=== PATIENT | female | born 1965 | race Caucasian/White ===

== ENCOUNTER 2016-07-29 11:58 | Observation (INO) | payer OTHER ==
--- NOTE | 2016-07-29 13:02 | ED ---
Chest Pain HPI - General Chief Complaint: Chest Pain Stated Complaint: chest pain 3 days Source: patient Mode of arrival: wheelchair Limitations: no limitations - History of Present Illness Initial Comments: Patient is a 51 year old female who presents for evaluation for three-day history of stabbing left-sided chest pain. Past medical history as below. She developed this pain while at rest 3 days ago. It is been constant over the past 3 days. It radiates to the left shoulder. She has never had a history of this before in the past. It is worse with inspiration. Nothing seems to make it better. She has tried aspirin, [place], Motrin, Aleve with no relief. She's never had pain like this before in the past. She's never had a DVT or pulmonary embolism. She has stress test last year which was apparently unremarkable. She's never had a heart catheterization before. Associated symptoms include decreased appetite and questionable nausea. She denies any history, to the left chest. No twisting or picking up any objects to attribute to her symptoms. She took an aspirin last night. The pain is currently 10 out of 10. Risk factors for cardiovascular disease include diabetes, hypertension, former smoker, distant family history of cardio vascular disease with 2 aunts receiving stents before the age of 65. She denies fever, chills, headache, changes of vision, URI symptoms, shortness of breath, cough, vomiting, diarrhea , pain or burning with urination. - Related Data Home Medications Medication Instructions Recorded Confirmed Lisinopril [Prinivil] 20 mg PO BID 10/21/13 07/29/16 Carvedilol [Coreg] 12.5 mg PO BID 07/29/16 07/29/16 Hydrocodone/Acetaminophen [[place] 1 tab PO Q4-6H PRN 07/29/16 07/29/16 10-325] Levothyroxine Sodium [Synthroid] 50 mcg PO DAILY 07/29/16 07/29/16 Liraglutide [Victoza 2-Rubén] 0.6 mg SQ DAILY 07/29/16 07/29/16 Liraglutide [Victoza 2-Rubén] 1.2 mg PO DAILY 07/29/16 07/29/16 amLODIPine [Norvasc] 10 mg PO DAILY 07/29/16 07/29/16 glipiZIDE [Glucotrol] 2.5 mg PO TID 07/29/16 07/29/16 Allergies Allergy/AdvReac Type Severity Reaction Status Date / Time Penicillins Allergy Unknown Verified 07/29/16 13:28 Childhood Review of Systems ROS Statement: Those systems with pertinent positive or pertinent negative responses have been documented in the HPI. ROS Other: All systems not noted in ROS Statement are negative. Past Medical History Past Medical History: GERD/Reflux, Hypertension, Sleep Apnea/CPAP/BIPAP Additional Past Medical History / Comment(s): hx migraines, hx heart murmer, chronic diarrhea History of Any Multi-Drug Resistant Organisms: None Reported Past Surgical History: Appendectomy, Cholecystectomy, Hysterectomy, Tonsillectomy Additional Past Surgical History / Comment(s): NECK FUSION, lasik eye Past Anesthesia/Blood Transfusion Reactions: No Reported Reaction Past Psychological History: No Psychological Hx Reported Smoking Status: Former smoker Past Alcohol Use History: None Reported Past Drug Use History: None Reported - Past Family History Father Family Medical History: Cancer General Exam Limitations: no limitations General appearance: alert, in no apparent distress Head exam: Present: atraumatic, normocephalic, normal inspection Eye exam: Present: normal appearance, PERRL, EOMI. Absent: scleral icterus, conjunctival injection, periorbital swelling ENT exam: Present: normal exam, mucous membranes moist Neck exam: Present: normal inspection. Absent: tenderness, meningismus, lymphadenopathy Respiratory exam: Present: normal lung sounds bilaterally. Absent: respiratory distress, wheezes, rales, rhonchi, stridor Cardiovascular Exam: Present: regular rate, normal rhythm, normal heart sounds, other (Normal S1 and S2. No murmurs. No gallops. Chest pain is not reproducible with palpation of the chest.). Absent: systolic murmur, diastolic murmur, rubs, gallop, clicks GI/Abdominal exam: Present: soft, normal bowel sounds. Absent: distended, tenderness, guarding, rebound, rigid Extremities exam: Present: normal inspection, full ROM, normal capillary refill , other (No pain with palpation of the calves.). Absent: tenderness, pedal edema, joint swelling, calf tenderness Back exam: Present: normal inspection Neurological exam: Present: alert, oriented X3, CN II-XII intact Psychiatric exam: Present: normal affect, normal mood Skin exam: Present: warm, dry, intact, normal color. Absent: rash Course Vital Signs 07/29/16 07/29/16 07/29/16 12:02 13:44 14:09 Temperature 99.1 F Pulse Rate 93 80 89 Respiratory 18 15 18 Rate Blood Pressure 141/71 139/71 149/79 O2 Sat by Pulse 93 L 98 Oximetry 07/29/16 15:00 Temperature Pulse Rate 75 Respiratory 20 Rate Blood Pressure 109/58 O2 Sat by Pulse 99 Oximetry Chest Pain MDM - MDM Patient is a 51-year-old female present for evaluation of left-sided chest pain over the past 3 days which has been constant in nature. Risk factors for cardiovascular disease include diabetes, hypertension, former smoker, family history of cardio vascular disease. She's never had a DVT or pulmonary embolism. EKG which was performed at 1210 and reviewed by another physician revealed normal sinus rhythm with right axis. No ST changes. Heart rate 89. DE 176. QRS 80. QTc 440. Similar to EKG on 10/21/13. Cannot perc her out. Low risk by well's criteria. We'll order cardiovascular workup, repeat EKG, aspirin, nitro, d-dimer. 1418: Pt developed [place] after nitro. Awaiting labs and repeat EKG. Discussed with nursing staff. Ordered 1 gm Acetaminophen. Is also nauseas. Will order zofran. 1423: Reviewed repeat EKG. Normal sinus rhythm at 82. DE 172. QRS 76. QTc 450. No change from previous EKG. No ST changes. Laboratory findings resulted. Troponin negative. D-dimer negative. Rest of labs appeared to be within normal limits. Awaiting chest x-ray. 1515: Chest x-ray negative. Discussed the case with the patient. Does not feel comfortable going home. States that she is never had pain like this before in the past. Since she continues to have chest pain we'll order Nitropaste. Discussed the case with Dr. Bucio (PCP preference) who agrees with observation. No further orders. Disposition Clinical Impression: Chest pain Disposition: ADMITTED IP TO THIS [facility] Condition: Good Decision to Admit Reason: Admit from EC
[2016-07-29] MEDS ORDERED: ASPIRIN 81 MG CHEW PO STA (13:16)
[2016-07-29] MEDS ORDERED: NITROGLYCERIN SL TABS 0.4 MG TAB SUBLINGUAL STA (13:24)
[2016-07-29] MEDS ORDERED: ACETAMINOPHEN TAB 500 MG TAB PO STA (14:15)
[2016-07-29 14:19] LABS: Creatine Kinase 44 U/L (30-135)
[2016-07-29] MEDS ORDERED: ONDANSETRON 4 MG/2 ML VIAL IVP STA (14:19)
[2016-07-29 14:20] LABS: ALT 51 U/L (9-52); AST 40 U/L (14-36); Alkaline Phosphatase 71 U/L (38-126); Anion Gap 14 mmol/L; Blood Urea Nitrogen 10 mg/dL (7-17); Calcium 9.7 mg/dL (8.4-10.2); Carbon Dioxide 25 mmol/L (22-30); Chloride 103 mmol/L (98-107); Glucose 91 mg/dL (74-99); Non-African American GFR(MDRD) >60 (>60 ml/min/1.73 sqM); Potassium 4.5 mmol/L (3.5-5.1); Sodium 142 mmol/L (137-145); Total Bilirubin 1.2 mg/dL (0.2-1.3); Total Protein 7.3 g/dL (6.3-8.2)
[2016-07-29 14:29] LABS: Basophils # (A) 0.1 k/uL (0-0.2); Basophils % (A) 1 %; CH 29.4; CHCM 33.5; Eosinophils # (A) 0.1 k/uL (0-0.7); Eosinophils % (A) 1 %; HCT 43.3 % (34.0-46.0); HDW 2.34; HGB 14.5 gm/dL (11.4-16.0); Luc % (Auto) 2; Lymphocytes # (A) 2.2 k/uL (1.0-4.8); Lymphocytes % (A) 22 %; MCH 29.4 pg (25.0-35.0); MCHC 33.4 g/dL (31.0-37.0); MCV 88.1 fL (80.0-100.0); Mean Platelet Volume 6.8; Monocytes # (A) 0.7 k/uL (0-1.0); Monocytes % (A) 7 %; Neutrophils # (A) 6.7 k/uL (1.3-7.7); Neutrophils % (A) 68 %; RBC 4.91 m/uL (3.80-5.40); RDW 13.2 % (11.5-15.5); WBC 9.9 k/uL (3.8-10.6); WBC (Perox) 10.72
[2016-07-29 14:31] LABS: Creatine Kinase MB <0.2 ng/mL (0.0-2.4); Troponin I <0.012 ng/mL (0.000-0.034)
[2016-07-29 14:39] LABS: INR 1.1 (<1.1); Partial Thromboplastin Time 25.8 sec (22.0-30.0); Prothrombin Time 10.7 sec (9.0-12.0)
--- NOTE | 2016-07-29 15:23 | XR ---
EXAMINATION TYPE: XR chest 2V DATE OF EXAM: 07/29/2016 3:12 PM COMPARISON: 10/21/2013 HISTORY: Shortness of breath TECHNIQUE: Frontal and lateral views of the chest are obtained. FINDINGS: There is no focal air space opacity, pleural effusion, or pneumothorax seen. The cardiac silhouette size is within normal limits. The osseous structures are intact. IMPRESSION: No acute cardiopulmonary process.
[2016-07-29 17:21] LABS: Glucose,Whole Blood 89 mg/dL (75-99)
[2016-07-29 18:33] LABS: Creatine Kinase 41 U/L (30-135)
[2016-07-29 18:47] LABS: Creatine Kinase MB <0.2 ng/mL (0.0-2.4); Troponin I <0.012 ng/mL (0.000-0.034)
[2016-07-29] MEDS ORDERED: NON-FORMULARY DRUG (Liraglutide [Victoza 2-Pak] 0.6 MG) SQ SCH (19:15)
[2016-07-29] MEDS: NITROGLYCERIN OINT 1 INCH/GM PACKET TOPICAL SCH (20:06)
[2016-07-29] MEDS: LISINOPRIL 20 MG TAB PO SCH (20:07)
[2016-07-29] MEDS: FAMOTIDINE 20 MG TAB PO SCH (20:07)
[2016-07-29] MEDS: CARVEDILOL 12.5 MG TAB PO SCH (20:07)
[2016-07-29] MEDS: HYDROcodone/APAP 10-325MG 1 EACH TAB PO PRN (20:07)
[2016-07-29 20:54] LABS: Glucose,Whole Blood 159 mg/dL (75-99)
[2016-07-30 02:20] LABS: Creatine Kinase 34 U/L (30-135)
[2016-07-30 02:35] LABS: Creatine Kinase MB <0.2 ng/mL (0.0-2.4); Troponin I <0.012 ng/mL (0.000-0.034)
[2016-07-30] MEDS: NITROGLYCERIN OINT 1 INCH/GM PACKET TOPICAL SCH ×2 (02:55→06:20)
[2016-07-30] MEDS: LEVOTHYROXINE 50 MCG TAB PO SCH (06:20)
[2016-07-30] MEDS: HYDROcodone/APAP 10-325MG 1 EACH TAB PO PRN ×2 (06:25→20:10)
[2016-07-30 06:58] LABS: Glucose,Whole Blood 110 mg/dL (75-99)
[2016-07-30 07:19] LABS: Cholesterol 159 mg/dL (<200); HDL Cholesterol 39 mg/dL (40-60); Triglycerides 141 mg/dL (<150)
[2016-07-30] MEDS ORDERED: DOBUTamine DRIP for NUC MED 500 MG in DEXTROSE/WATER 1 250ML.BAG IV ONE (07:40)
[2016-07-30] MEDS: ASPIRIN 325 MG TAB PO SCH (08:52)
[2016-07-30] MEDS: CARVEDILOL 12.5 MG TAB PO SCH ×2 (08:53→17:50)
[2016-07-30] MEDS: amLODIPine 10 MG TAB PO SCH (08:53)
[2016-07-30] MEDS ORDERED: ONDANSETRON 4 MG/2 ML VIAL IVP STA (09:34)
--- NOTE | 2016-07-30 10:28 | ECHOF ---
Referral Reason:cp MEASUREMENTS -------- HEIGHT: 162.6 cm WEIGHT: 112.9 kg BP: IVSd: 1.0 cm (0.6 - 1.1) LVIDd: 4.0 cm (3.9 - 5.3) LVPWd: 1.3 cm (0.6 - 1.1) IVSs: 1.4 cm LVIDs: 2.9 cm LVPWs: 2.0 cm LA Diam: 3.3 cm (2.7 - 3.8) LAESV Index (A-L): 20.76 ml/m Ao Diam: 2.5 cm (2.0 - 3.7) AV Cusp: 1.5 cm (1.5 - 2.6) LA Diam: 3.5 cm (2.7 - 3.8) MV EXCURSION: 14.230 mm (> 18.000) MV EF SLOPE: 53 mm/s (70 - 150) EPSS: 0.3 cm MV E Nader: 0.58 m/s MV DecT: 298 ms MV A Nader: 0.68 m/s MV E/A Ratio: 0.86 RAP: 5.00 mmHg RVSP: 9.64 mmHg FINDINGS -------- Sinus rhythm. This was a technically adequate study. There is mild concentric left ventricular hypertrophy. Overall left ventricular systolic function is low-normal with, an EF between 50 - 55 %. The right ventricle is normal in size. Normal LA size by volume 22+/-6 ml/m2. The right atrial size is normal. The aortic valve is trileaflet, and appears structurally normal. No aortic stenosis or regurgitation. Mild mitral annular calcification present. Mild mitral regurgitation is present. Mild tricuspid regurgitation present. There is no evidence of pulmonary hypertension. The right ventricular systolic pressure, as measured by Doppler, is 9.64mmHg. There is no pulmonic regurgitation present. The aortic root size is normal. There is a small, generalized pericardial effusion present. CONCLUSIONS -------- 1. There is mild concentric left ventricular hypertrophy. 2. Overall left ventricular systolic function is low-normal with, an EF between 50 - 55 %. 3. Mild mitral annular calcification present. 4. Mild mitral regurgitation is present. 5. Mild tricuspid regurgitation present. 6. There is no evidence of pulmonary hypertension. 7. The right ventricular systolic pressure, as measured by Doppler, is 9.64mmHg. 8. The aortic root size is normal. 9. There is a small, generalized pericardial effusion present. JACQUARD LOOM CARD CHANGER: Robyn Sanders RDCS
--- NOTE | 2016-07-30 11:17 | CONS ---
DATE OF CONSULTATION: Mrs. London is a 51-year-old female with no prior documented history of coronary artery disease, who presented with symptoms of chest discomfort going on for the last 2 to 3 days. The discomfort in the chest sharp radiated to the back at times constant and worse with deep breathing. She is not very active physically, has some dyspnea on exertion, but no prior history of coronary artery disease. She had a stress test over a year ago that was unremarkable. She denies dizziness or palpitation. No PND, orthopnea. She has occasional peripheral edema. No syncope. Her coronary risk factors remarkable for hypertension, diabetes mellitus. She stopped smoking a few years ago. She has not been treated for hyperlipidemia. Medications at home include: 1. [place]. 2. Coreg 12.5 mg twice a day. 3. Glipizide 2.5 mg 3 times a day. 4. Norvasc 10 mg daily. 5. Prinivil 20 mg twice a day. 6. Synthroid 0.05 mg daily. 7. Victoza. 8. Pepcid. REVIEW OF SYSTEMS: RESPIRATORY SYSTEM: She has obstructive sleep apnea. Some dyspnea on exertion. No wheezing. GI: No recent GI bleeding. No peptic ulcer disease. system: No dysuria or hematuria. Nervous system: No stroke or seizure. PHYSICAL EXAMINATION: She is a 51-year-old female, alert, oriented, in no apparent distress. Obese blood pressure 117/68 with a heart rate in 70s. HEAD: Normocephalic. EYES: Sclerae anicteric. NECK: Good upstroke. No bruit. No jugular venous distention. LUNGS: Clear to auscultation. HEART: Regular rate rhythm. S1, S2, no S3, no S4, no murmur or rub. ABDOMEN: Soft, nontender, obese. Positive bowel sounds. No organomegaly. EXTREMITIES: No edema. Intact distal pulses. Lab data revealed troponin less than 0.012 for 3 samples, BUN and creatinine of 10 and 0.53. Potassium 4.5. Hemoglobin of 14.5. Cholesterol 159, LDL of 92. Chest x-ray shows no acute infiltrate. EKG sinus mechanism with a normal axis and intervals, normal echocardiogram. IMPRESSION: 1. Chest discomfort, has atypical features for ischemic disease in a patient with multiple coronary risk factors. No evidence to suggest acute coronary syndrome. 2. Hypertension. 3. Diabetes. 4. Obesity. 5. Obstructive sleep apnea. RECOMMENDATIONS: I recommend proceeding with a stress dobutamine echocardiogram to evaluate her findings and guide her treatment. If there is no evidence of inducible ischemia, then no further cardiac work-up will be needed at this time. Thank you for this consult. We will follow with you.
[2016-07-30] MEDS ORDERED: ATROPINE SULFATE 0.1 MG/ML 10ML SYRINGE ONE (11:57)
[2016-07-30 12:23] LABS: Glucose,Whole Blood 92 mg/dL (75-99)
[2016-07-30] MEDS: LISINOPRIL 20 MG TAB PO SCH ×2 (12:31→21:09)
--- NOTE | 2016-07-30 13:50 | ECHOS ---
DATE OF SERVICE: 07/30/2016 AGE: 51Y SEX: F HT: 64" WT: 249 lbs. Protocol Chavo: Others: Dobutamine Stress Echo Stage: 4 Dur. of Exercise: 10:45 *Heart Rate Blood Pressure *Rest: 72 Rest: 142/42 * *Max. Achieved: 149 Maximum BP: 185/38 85% PMHR: 145 100% PMHR: 171 *METS: - INDICATIONS: Chest pain. MEDICATIONS: - Patient was given dobutamine infusion according to the standard protocol. Peak heart rate of 149 was achieved. Maximum blood pressure of 185/38 mmHg was noted. Resting EKG shows normal sinus rhythm with normal CO interval and QRS duration and normal ST-T waves. No ST segment depression suggestive of ischemia is noted echocardiographic images reveals a normal left ventricular chamber size with normal left ventricular systolic function. At the peak dose of dobutamine infusion, normal increase in the wall thickness and contractility is noted. FINAL IMPRESSION: 1. This dobutamine stress echocardiographic study is negative for stress-induced ischemia. 2. EKG portion of the stress test is not suggestive of ischemia. 3. No dysrhythmias are noted.
--- NOTE | 2016-07-30 15:52 | P.HPIM ---
History of Present Illness H&P Date: 07/30/16 Chief Complaint: Chest pain This is a 51-year-old female with a known past medical history of diabetes mellitus, hypertension, former smoker, and obstructive sleep apnea. She presents to the emergency room with complaints of chest pain. Patient reports that the chest pain has started about 3 days ago. Initially intermittent and now has been constant. Pain is on the left side of the chest and radiates to the left shoulder blade. She admits to having some shortness of breath nausea and diaphoretic. She also had tingling in the left arm. She was admitted to the observation floor. Cardiology was consulted. Troponins were negative 3 sets. EKG showing a normal sinus rhythm. Chest x-rays negative. Dobutamine stress echo was completed and was negative. Echo had shown EF of 50-55% but did reveal a small pericardial effusion. Patient is still complaining of chest discomfort. She denies any new exercises or any heavy lifting. Denies any cough, fevers chills or sweats. Denies any vomiting. Denies any bowel movement changes. Denies any urinary symptoms. Review of Systems Please refer to HPI otherwise unremarkable Past Medical History Past Medical History: Diabetes Mellitus, GERD/Reflux, Hypertension, Sleep Apnea/ CPAP/BIPAP Additional Past Medical History / Comment(s): hx migraines, hx heart murmer, chronic diarrhea. diagnosed 7 months ago with Diabetes Mellitis History of Any Multi-Drug Resistant Organisms: None Reported Past Surgical History: Appendectomy, Cholecystectomy, Hysterectomy, Tonsillectomy Additional Past Surgical History / Comment(s): NECK FUSION, lasik eye Past Anesthesia/Blood Transfusion Reactions: No Reported Reaction Past Psychological History: No Psychological Hx Reported Smoking Status: Former smoker Past Alcohol Use History: None Reported Past Drug Use History: None Reported - Past Family History Father Family Medical History: Cancer Medications and Allergies Home Medications Medication Instructions Recorded Confirmed Type Lisinopril [Prinivil] 20 mg PO BID 10/21/13 07/29/16 History Carvedilol [Coreg] 12.5 mg PO BID 07/29/16 07/29/16 History Famotidine 20 mg PO HS 07/29/16 07/29/16 History Hydrocodone/Acetaminophen [[place] 1 tab PO Q4-6H PRN 07/29/16 07/29/16 History 10-325] Levothyroxine Sodium [Synthroid] 50 mcg PO DAILY 07/29/16 07/29/16 History Liraglutide [Victoza 2-Rubén] 0.6 mg SQ DAILY 07/29/16 07/29/16 History Liraglutide [Victoza 2-Rubén] 1.2 mg SQ DAILY 07/29/16 07/29/16 History amLODIPine [Norvasc] 10 mg PO DAILY 07/29/16 07/29/16 History glipiZIDE [Glucotrol] 2.5 mg PO TID 07/29/16 07/29/16 History Allergies Allergy/AdvReac Type Severity Reaction Status Date / Time Penicillins Allergy Unknown Verified 07/29/16 13:28 Childhood Physical Exam Vitals: Vital Signs Temp Pulse Pulse Resp BP BP Pulse Ox 07/30/16 12:00 97.9 F 96 18 117/67 95 07/30/16 08:00 18 07/30/16 07:50 97.8 F 73 18 111/69 97 07/30/16 04:00 16 07/30/16 03:53 97.9 F 74 16 117/68 95 07/30/16 00:00 16 07/29/16 23:59 98.8 F 76 16 115/64 94 L 07/29/16 20:00 98.1 F 87 16 150/79 93 L 07/29/16 18:06 97 07/29/16 16:52 97.9 F 81 16 135/84 96 07/29/16 15:59 98.0 F 85 18 109/58 99 Intake and Output 07/30/16 07/30/16 07/30/16 06:59 14:59 22:59 Intake Total 222 Balance 222 Intake: Oral 222 Other: Voiding Method Toilet # Voids 1 Head normocephalic Neck supple Lungs clear to auscultation bilaterally no wheezing or crackles. No tenderness with palpation of the chest wall. No rashes Heart regular rate and rhythm S1-S2, no rub or gallop Abdomen is soft nontender nondistended positive bowel sounds no hepatosplenomegaly Extremities no edema Neuro alert and orientated to 3 Results CBC & Chem 7: 07/29/16 13:53 07/29/16 13:53 Labs: Abnormal Lab Results - Last 24 Hours (Table) 02/26/17 02/27/17 02/27/17 Range/Units 20:49 06:33 06:53 POC Glucose (mg/dL) 159 H 110 H (75-99) mg/dL HDL Cholesterol 39 L (40-60) mg/dL Thrombosis Risk Factor Assmnt - Choose All That Apply Any of the Below Risk Factors Present?: Yes Each Factor Represents 1 point: Age 41-60 years, Obesity (BMI >25) Other Risk Factors: No Thrombosis Risk Factor Assessment Total Risk Factor Score: 2 Thrombosis Risk Factor Assessment Level: Low Risk Assessment and Plan Plan: 1. Chest pain: MO ruled out. Troponins negative 3 sets. EKG showing a normal sinus rhythm. Dobutamine stress echo was negative. Patient still having some chest discomfort. Echo did show a small pericardial effusion with an EF of 50-55%. We'll discuss case with cardiology. Chest x-ray negative. D- dimer negative. 2. Diabetes mellitus type 2: Continue glipizide. We'll add sliding scale coverage. 3. Essential hypertension blood pressure stable 4. Hypothyroidism continue Synthroid GI prophylaxis Pepcid and DVT prophylaxis subcu heparin Time with Patient: Greater than 30 (Greater than 50% of the total time spent in counseling and coordination of care.I performed an examination of the patient and discussed their management with the physician Bartender. I have reviewed the Physician Bartender's notes and agree with the documented findings and plan of care)
[2016-07-30 17:48] LABS: Glucose,Whole Blood 95 mg/dL (75-99)
[2016-07-30] MEDS: INSULIN LISPRO (humaLOG) 300 UNIT/3 ML VIAL SQ SCH ×2 (17:51→21:39)
[2016-07-30] MEDS: ONDANSETRON 4 MG/2 ML VIAL IVP PRN (20:10)
[2016-07-30 20:24] LABS: Hemoglobin A1C 6.5 % (4.2-6.1)
[2016-07-30] MEDS: FAMOTIDINE 20 MG TAB PO SCH (21:09)
[2016-07-30] MEDS: HEPARIN SODIUM,PORCINE 5,000 UNIT/ML 1 ML VIAL SQ SCH (21:09)
[2016-07-30 21:16] LABS: Glucose,Whole Blood 133 mg/dL (75-99)
[2016-07-31] MEDS: HYDROcodone/APAP 10-325MG 1 EACH TAB PO PRN ×3 (03:53→20:13)
[2016-07-31] MEDS: ONDANSETRON 4 MG/2 ML VIAL IVP PRN ×4 (03:54→23:08)
[2016-07-31] MEDS: LEVOTHYROXINE 50 MCG TAB PO SCH (06:05)
[2016-07-31 06:42] LABS: Basophils # (A) 0.1 k/uL (0-0.2); Basophils % (A) 1 %; CH 29.1; CHCM 31.9; Eosinophils # (A) 0.3 k/uL (0-0.7); Eosinophils % (A) 3 %; HCT 44.6 % (34.0-46.0); HDW 2.26; HGB 14.1 gm/dL (11.4-16.0); Luc # (Auto) 0.24; Luc % (Auto) 3; Lymphocytes # (A) 3.1 k/uL (1.0-4.8); Lymphocytes % (A) 33 %; MCH 29.1 pg (25.0-35.0); MCHC 31.7 g/dL (31.0-37.0); MCV 91.7 fL (80.0-100.0); Mean Platelet Volume 6.5; Monocytes # (A) 0.6 k/uL (0-1.0); Monocytes % (A) 6 %; Neutrophils # (A) 5.3 k/uL (1.3-7.7); Neutrophils % (A) 55 %; RBC 4.86 m/uL (3.80-5.40); RDW 13.1 % (11.5-15.5); WBC 9.6 k/uL (3.8-10.6); WBC (Perox) 9.84
[2016-07-31 07:01] LABS: Glucose,Whole Blood 105 mg/dL (75-99)
[2016-07-31 07:19] LABS: ALT 58 U/L (9-52); AST 36 U/L (14-36); Alkaline Phosphatase 70 U/L (38-126); Anion Gap 11 mmol/L; Blood Urea Nitrogen 13 mg/dL (7-17); Calcium 9.5 mg/dL (8.4-10.2); Carbon Dioxide 28 mmol/L (22-30); Chloride 102 mmol/L (98-107); Glucose 110 mg/dL (74-99); Non-African American GFR(MDRD) >60 (>60 ml/min/1.73 sqM); Potassium 4.6 mmol/L (3.5-5.1); Sodium 141 mmol/L (137-145); Total Bilirubin 0.8 mg/dL (0.2-1.3); Total Protein 7.1 g/dL (6.3-8.2)
[2016-07-31] MEDS: INSULIN LISPRO (humaLOG) 300 UNIT/3 ML VIAL SQ SCH ×4 (08:51→21:04)
[2016-07-31] MEDS: LISINOPRIL 20 MG TAB PO SCH ×2 (09:44→20:12)
[2016-07-31] MEDS: ASPIRIN 325 MG TAB PO SCH (09:44)
[2016-07-31] MEDS: amLODIPine 10 MG TAB PO SCH (09:44)
[2016-07-31] MEDS: CARVEDILOL 12.5 MG TAB PO SCH ×2 (09:44→17:17)
[2016-07-31] MEDS: HEPARIN SODIUM,PORCINE 5,000 UNIT/ML 1 ML VIAL SQ SCH ×2 (09:45→20:19)
--- NOTE | 2016-07-31 09:53 | PN ---
Mrs. London is a 51-year-old female. Known history of hypertension and diabetes mellitus, who presented with symptoms of chest discomfort. She still has the discomfort. The discomfort is worse when she takes a deep breath. Otherwise, her breathing is unchanged. She has chronic dyspnea on exertion. She denies any dizziness or palpitation. She has underwent stress dobutamine echocardiogram, revealed no evidence of inducible ischemia. Her ejection fraction is 50% to 55% with a small generalized pericardial effusion. She continues to be at this time on aspirin, Coreg 12.5 mg twice a day, lisinopril 20 mg twice a day, amlodipine 10 mg daily, glipizide 2.5 mg 3 times a day in addition to Victoza. PHYSICAL EXAMINATION: Blood pressure 126/50 with a heart rate in the 70s. LUNGS: Clear. HEART: Regular rate rhythm. S1, S2, no S3, no rub. ABDOMEN: Soft, obese, nontender. EXTREMITIES: No edema. Chest pain is reproducible by deep breathing. Lab data revealed BUN and creatinine 13 and 0.76. Potassium 4.6. Hemoglobin 14.4. IMPRESSION: 1. Chest discomfort, atypical for ischemic heart disease, probably noncardiac with a normal stress dobutamine echocardiogram. 2. Hypertension. 3. Hyperlipidemia. 4. Diabetes mellitus. 5. Obstructive sleep apnea. 6. Small pericardial effusion, asymptomatic. Impression from the cardiac standpoint, there is no evidence to suggest ischemic heart disease as details of her symptoms. I will continue clinical observation on the present medical regimen. The pericardial effusion at this time requires no further work-up.
[2016-07-31 12:21] LABS: Glucose,Whole Blood 148 mg/dL (75-99)
[2016-07-31] MEDS ORDERED: methylPREDNISolone SOD SUCCI 125 MG/2 ML VIAL IV STA (13:19)
--- NOTE | 2016-07-31 13:27 | P.PN ---
Subjective Principal diagnosis: Chest pain Patient is a 51-year-old female admitted to [facility] was a chief complaint of chest pain. Serial EKG and cardiac enzymes were negative stress test was negative Echocardiogram revealed small pericardial effusion She was evaluated by cardiology no intervention was recommended Patient continues to have severe pain in the left side of her chest especially with deep inspiration Chest x-ray was within normal limits There is no skin rash in the area Objective - Vital Signs Vital signs: Vital Signs Temp 97.6 F 07/31/16 12:00 Pulse 72 07/31/16 12:00 Resp 18 07/31/16 12:00 BP 95/52 07/31/16 12:00 Pulse Ox 95 07/31/16 12:00 Intake & Output 07/30/16 07/31/16 07/31/16 18:59 06:59 18:59 Intake Total 822 118 Balance 822 118 Intake: Oral 822 118 Other: Voiding Method Toilet # Voids 1 - Exam In general patient is alert and oriented 3 in no apparent distress HEENT head normocephalic and nontraumatic Neck is supple no JVD no goiter no lymphadenopathy Chest exam reveals a few scattered crackles no wheezing Cardiac exam reveals regular heart sounds no gallops no murmurs Abdomen is soft nontender no organomegaly Extremity exam reveals no edema no cyanosis or clubbing - Labs CBC & Chem 7: 07/31/16 06:23 07/31/16 06:23 Labs: Abnormal Lab Results - Last 24 Hours (Table) 07/30/16 07/31/16 07/31/16 Range/Units 21:13 06:23 06:57 Glucose 110 H (74-99) mg/dL POC Glucose (mg/dL) 133 H 105 H (75-99) mg/dL ALT 58 H (9-52) U/L 07/31/16 Range/Units 12:02 Glucose (74-99) mg/dL POC Glucose (mg/dL) 148 H (75-99) mg/dL ALT (9-52) U/L Assessment and Plan Plan: #1 episode of chest pain, NH ruled out #2 small pericardial effusion #3 hypertension well-controlled on current medications #4 hypothyroidism maintained on Synthroid At this time continue was current management will give 1 dose of Solu-Medrol pain may be related to inflammatory changes Will consult pulmonary will follow for 24 more hours
[2016-07-31] MEDS: VICTOZA 1.2 MG SQ SCH ×2 (15:35→17:11)
--- NOTE | 2016-07-31 16:54 | P.CNPUL ---
History of Present Illness Consult date: 07/31/16 Requesting physician: Laine Bucio Chief complaint: Left sided chest pain History of present illness: This is a 51-year-old female, remote smoking history but she quit smoking over 40 years ago. History of multiple medical problems including diabetes, hypertension, obesity, presented to the ER with a few days' history of left sided pleuritic chest pain. Pain was described as sharp pain, worse upon taking a deep breath. Denies any fever no chills, no hemoptysis, no nausea, no vomiting, no abdominal pain. Denies any significant shortness of breath. Pain actually started 3 days prior to her admission, it radiated at times to the left shoulder blade, but was definitely pleuritic in nature. Upon admission she had a chest x-ray which was normal. Troponins were negative. D-dimer was normal. EKG showed no evidence of acute changes, dobutamine stress echo was negative. Echocardiogram was normal except for a small recovered effusion not felt to be significant. Patient has been in the hospital for the last few days , continues to have pain. Hence this consult was initiated. Review of Systems 12 point review of systems were obtained, please refer to pertinent positives and negatives in HPI. Past Medical History Past Medical History: Diabetes Mellitus, GERD/Reflux, Hypertension, Sleep Apnea/ CPAP/BIPAP Additional Past Medical History / Comment(s): hx migraines, hx heart murmer, chronic diarrhea. diagnosed 7 months ago with Diabetes Mellitis History of Any Multi-Drug Resistant Organisms: None Reported Past Surgical History: Appendectomy, Cholecystectomy, Hysterectomy, Tonsillectomy Additional Past Surgical History / Comment(s): NECK FUSION, lasik eye Past Anesthesia/Blood Transfusion Reactions: No Reported Reaction Past Psychological History: No Psychological Hx Reported Smoking Status: Former smoker Past Alcohol Use History: None Reported Past Drug Use History: None Reported - Past Family History Father Family Medical History: Cancer Medications and Allergies Home Medications Medication Instructions Recorded Confirmed Type Lisinopril [Prinivil] 20 mg PO BID 10/21/13 07/29/16 History Carvedilol [Coreg] 12.5 mg PO BID 07/29/16 07/29/16 History Famotidine 20 mg PO HS 07/29/16 07/29/16 History Hydrocodone/Acetaminophen [[place] 1 tab PO Q4-6H PRN 07/29/16 07/29/16 History 10-325] Levothyroxine Sodium [Synthroid] 50 mcg PO DAILY 07/29/16 07/29/16 History Liraglutide [Victoza 2-Rubén] 0.6 mg SQ DAILY 07/29/16 07/29/16 History Liraglutide [Victoza 2-Rubén] 1.2 mg SQ DAILY 07/29/16 07/29/16 History amLODIPine [Norvasc] 10 mg PO DAILY 07/29/16 07/29/16 History glipiZIDE [Glucotrol] 2.5 mg PO TID 07/29/16 07/29/16 History Allergies Allergy/AdvReac Type Severity Reaction Status Date / Time Penicillins Allergy Unknown Verified 07/29/16 13:28 Childhood Physical Exam Vitals: Vital Signs Temp Pulse Resp BP Pulse Ox 07/31/16 15:53 98.3 F 79 18 117/57 94 L 07/31/16 12:00 97.6 F 72 18 95/52 95 07/31/16 07:45 98.0 F 76 18 126/53 96 07/31/16 04:00 16 07/31/16 03:51 98.4 F 71 16 134/66 96 07/31/16 00:00 16 07/30/16 23:39 98.2 F 76 16 135/69 96 07/30/16 20:00 18 07/30/16 19:41 98.7 F 85 18 106/66 98 Intake and Output 07/31/16 07/31/16 07/31/16 06:59 14:59 22:59 Intake Total 118 Balance 118 Intake: Oral 118 Other: Voiding Method Toilet # Voids 1 Physical Exam: Revealed a 51-year-old female in no distress. HEENT:[Neck is supple.] [No neck masses.] [No thyromegaly.] [No JVD.] Chest: [Clear throughout, no crackles, no rhonchi, no wheezes.] No tenderness was noted over the area of the pain just below the left breast. Cardiac Exam: [Normal S1 and S2, no S3 gallop, no murmur.] Abdomen: [Soft, nontender, no megaly, no rebound, no guarding, normal bowel sounds.] Extremities: [No clubbing, no edema, no cyanosis.] Neurological Exam: [No focal neurologic deficit.] Results - Laboratory Findings CBC and BMP: 07/31/16 06:23 07/31/16 06:23 PT/INR, D-dimer PT 10.7 sec (9.0-12.0) 07/29/16 13:53 INR 1.1 (<1.1) 07/29/16 13:53 D-Dimer 0.31 mg/L FEU (<0.60) 07/29/16 13:53 Abnormal lab findings: Abnormal Labs 07/29/16 07/30/16 07/30/16 20:49 06:33 06:53 Glucose POC Glucose (mg/dL) 159 H 110 H ALT HDL Cholesterol 39 L 07/30/16 07/31/16 07/31/16 21:13 06:23 06:57 Glucose 110 H POC Glucose (mg/dL) 133 H 105 H ALT 58 H HDL Cholesterol 07/31/16 12:02 Glucose POC Glucose (mg/dL) 148 H ALT HDL Cholesterol - Diagnostic Findings Chest x-ray: image reviewed (No evidence of active disease) Assessment and Plan Plan: Impression: 1 acute pleurisy, patient would likely respond to a course of prednisone burst and taper. Hence I will start the patient on Solu-Medrol 60 mg IV push every 6 hours. Once the patient improves, she could be switched to nonsteroidal anti- inflammatory drugs and follow up on outpatient basis. 2 multiple comorbidities including diabetes, hypertension, obstructive sleep apnea syndrome, GERD, and history of migraines. And remote history of lung biopsy done over 10 years ago. History of hypothyroidism and history of cervical fusion. Recommendation: We'll start Solu-Medrol and can possibly consider discharging the patient home in a.m. on prednisone burst and taper over 21 days. Time with Patient: Greater than 30
[2016-07-31 17:00] LABS: Glucose,Whole Blood 127 mg/dL (75-99)
[2016-07-31] MEDS: methylPREDNISolone SOD SUCCI 125 MG/2 ML VIAL IV SCH ×2 (18:49→23:11)
[2016-07-31] MEDS: FAMOTIDINE 20 MG TAB PO SCH (20:12)
[2016-07-31 20:24] LABS: Glucose,Whole Blood 215 mg/dL (75-99)
[2016-08-01] MEDS: ONDANSETRON 4 MG/2 ML VIAL IVP PRN ×2 (04:39→11:04)
[2016-08-01 04:52] VITALS: PULSE 101
[2016-08-01] MEDS: methylPREDNISolone SOD SUCCI 125 MG/2 ML VIAL IV SCH ×2 (06:21→12:46)
[2016-08-01] MEDS: LEVOTHYROXINE 50 MCG TAB PO SCH (06:35)
[2016-08-01 06:48] LABS: Glucose,Whole Blood 187 mg/dL (75-99)
[2016-08-01 07:23] LABS: Basophils % (A) 0 %; CH 29.1; CHCM 32.6; Eosinophils % (A) 0 %; HCT 41.6 % (34.0-46.0); HDW 2.32; HGB 13.4 gm/dL (11.4-16.0); Luc # (Auto) 0.05; Luc % (Auto) 1; Lymphocytes # (A) 1.2 k/uL (1.0-4.8); Lymphocytes % (A) 11 %; MCHC 32.3 g/dL (31.0-37.0); MCV 89.7 fL (80.0-100.0); Mean Platelet Volume 6.3; Monocytes # (A) 0.2 k/uL (0-1.0); Monocytes % (A) 2 %; Neutrophils # (A) 9.4 k/uL (1.3-7.7); Neutrophils % (A) 86 %; RBC 4.63 m/uL (3.80-5.40); RDW 12.9 % (11.5-15.5); WBC (Perox) 11.54
[2016-08-01 07:42] LABS: ALT 90 U/L (9-52); AST 42 U/L (14-36); Alkaline Phosphatase 75 U/L (38-126); Anion Gap 12 mmol/L; Blood Urea Nitrogen 12 mg/dL (7-17); Calcium 9.4 mg/dL (8.4-10.2); Carbon Dioxide 26 mmol/L (22-30); Chloride 101 mmol/L (98-107); Glucose 213 mg/dL (74-99); Non-African American GFR(MDRD) >60 (>60 ml/min/1.73 sqM); Potassium 4.7 mmol/L (3.5-5.1); Sodium 139 mmol/L (137-145); Total Bilirubin 0.7 mg/dL (0.2-1.3); Total Protein 6.9 g/dL (6.3-8.2)
[2016-08-01] MEDS: CARVEDILOL 12.5 MG TAB PO SCH (07:53)
[2016-08-01] MEDS: ASPIRIN 325 MG TAB PO SCH (07:53)
[2016-08-01] MEDS: LISINOPRIL 20 MG TAB PO SCH (07:53)
[2016-08-01] MEDS: VICTOZA 1.2 MG SQ SCH (07:53)
[2016-08-01] MEDS: amLODIPine 10 MG TAB PO SCH (07:53)
[2016-08-01] MEDS: INSULIN LISPRO (humaLOG) 300 UNIT/3 ML VIAL SQ SCH ×2 (07:54→12:46)
[2016-08-01 08:11] VITALS: BP 134/68; RESP 18; TEMP 98.2
[2016-08-01] MEDS: HEPARIN SODIUM,PORCINE 5,000 UNIT/ML 1 ML VIAL SQ SCH (08:29)
--- NOTE | 2016-08-01 11:36 | P.PN ---
Subjective Principal diagnosis: Pleurisy This is a 51-year-old female, remote smoking history but she quit smoking over 40 years ago. History of multiple medical problems including diabetes, hypertension, obesity, presented to the ER with a few days' history of left sided pleuritic chest pain. Pain was described as sharp pain, worse upon taking a deep breath. Denies any fever no chills, no hemoptysis, no nausea, no vomiting, no abdominal pain. Denies any significant shortness of breath. Pain actually started 3 days prior to her admission, it radiated at times to the left shoulder blade, but was definitely pleuritic in nature. Upon admission she had a chest x-ray which was normal. Troponins were negative. D-dimer was normal. EKG showed no evidence of acute changes, dobutamine stress echo was negative. Echocardiogram was normal except for a small recovered effusion not felt to be significant. Patient has been in the hospital for the last few days , continues to have pain. Hence this consult was initiated. The patient was seen again today 08/01/2016 in follow-up on the observation unit. She is still having some left-sided chest discomfort with deep inhalation but it is improved today as compared to yesterday. She was initiated on IV Solu-Medrol yesterday. We'll plan to convert to oral prednisone taper today. She is maintaining good O2 saturations in the mid 90s on room air. She remains afebrile. Hemodynamically stable. Objective - Vital Signs Vital signs: Vital Signs Temp 98.2 F 08/01/16 08:00 Pulse 101 H 08/01/16 08:00 Resp 18 08/01/16 08:00 BP 134/68 08/01/16 08:00 Pulse Ox 94 L 08/01/16 08:00 Intake & Output 07/31/16 08/01/16 08/01/16 18:59 06:59 18:59 Intake Total 638 120 Balance 638 120 Weight 113 kg Intake: Oral 638 120 Other: Voiding Method Toilet # Voids 1 - Exam GENERAL EXAM: Obese. Alert, active, comfortable in no apparent distress. HEAD: Normocephalic. EYES: Normal reaction of pupils, equal size. NOSE: Clear with pink turbinates. THROAT: No erythema or exudates. NECK: No masses, no JVD. CHEST: No chest wall deformity. LUNGS: Equal air entry with no crackles, wheeze, rhonchi or dullness. CVS: S1 and S2 normal with no audible murmurs, regular rhythm. ABDOMEN: No hepatosplenomegaly, normal bowel sounds, no guarding or rigidity. SPINE: No scoliosis or deformity SKIN: No rashes CENTRAL NERVOUS SYSTEM: No focal deficits, tone is normal in all 4 extremities. Extremities: There is no significant peripheral edema. No clubbing, no cyanosis. Peripheral pulses are intact. - Labs CBC & Chem 7: 08/01/16 06:49 08/01/16 06:49 Labs: Abnormal Lab Results - Last 24 Hours (Table) 07/31/16 07/31/16 07/31/16 Range/Units 12:02 16:57 20:18 WBC (3.8-10.6) k/uL Neutrophils # (1.3-7.7) k/uL Glucose (74-99) mg/dL POC Glucose (mg/dL) 148 H 127 H 215 H (75-99) mg/dL AST (14-36) U/L ALT (9-52) U/L 08/01/16 08/01/16 08/01/16 Range/Units 06:46 06:49 06:49 WBC 11.0 H (3.8-10.6) k/uL Neutrophils # 9.4 H (1.3-7.7) k/uL Glucose 213 H (74-99) mg/dL POC Glucose (mg/dL) 187 H (75-99) mg/dL AST 42 H (14-36) U/L ALT 90 H (9-52) U/L Assessment and Plan Plan: Impression: #1 Left-sided pleuritic chest pain, responding to steroids. No evidence of stress-induced ischemia. Negative d-dimer. #2 Diabetes mellitus, type II. #3 Hypertension. #4 Obstructive sleep apnea #5 Obesity. #6 Hypothyroidism. #7 History of chronic tobacco dependence. #8 Lung biopsy greater than 10 years ago. Denies any diagnosis of cancer. Plan: The patient was seen and evaluated by Dr. Huizar. Her pain is subsiding. We' ll switch her to a prednisone taper. She is cleared for discharge from the pulmonary standpoint. She could follow-up in our office in 1-2 weeks' time.
[2016-08-01 11:41] LABS: Hemoglobin A1C 6.6 % (4.2-6.1)
[2016-08-01 12:05] LABS: Glucose,Whole Blood 271 mg/dL (75-99)
--- NOTE | 2016-08-01 12:58 | P.DS ---
Providers Date of admission: 07/29/16 15:42 Expected date of discharge: 08/01/16 Attending physician: Laine Bucio Consults: 07/29/16 19:02 Consult Physician Routine Consulting Provider: Connie Kaplan Consult Reason/Comments: chest pain Do you want consulting provider notified?: Yes, Notify in am 07/31/16 13:18 Consult Physician Routine Consulting Provider: Ashley Huizar Consult Reason/Comments: chest pain with deep inspiration Do you want consulting provider notified?: Yes Primary care physician: Gertrudis Adams Williams Hospital Course: Diagnoses on discharge #1 acute chest pain #2 pleurisy #3 small pericardial effusion #4 underlying history of hypertension #5 underlying history of [id number] diabetes mellitus Hospital course Patient is a 51-year-old female who presented to [facility] was a chief complaint of chest pain patient was having severe sharp pain in the left side of her chest underneath her breast exacerbated by taking deep breath she was admitted to 24-hour observation unit she underwent serial EKGs and cardiac enzymes that were negative d-dimer was negative she underwent a stress test that was negative. Patient continued to have severe pain in her chest she was reevaluated by cardiology echo cardiogram revealed small pericardial effusion however no intervention was recommended by cardiology she was also seen by pulmonary preliminary diagnosis was acute pleurisy she was given a high dose of IV steroids she improved she was discharged home on 08/01/2016 she was given a prednisone taper she will follow-up with her primary care physician within one week Patient Condition at Discharge: Good Plan - Discharge Summary New Discharge Prescriptions: predniSONE 0 mg PO DIRECTED #50 tab Discharge Medication List Lisinopril [Prinivil] 20 mg PO BID 10/21/13 [History] Carvedilol [Coreg] 12.5 mg PO BID 07/29/16 [History] Famotidine 20 mg PO HS 07/29/16 [History] Hydrocodone/Acetaminophen [[place] 10-325] 1 tab PO Q4-6H PRN 07/29/16 [History] Levothyroxine Sodium [Synthroid] 50 mcg PO DAILY 07/29/16 [History] Liraglutide [Victoza 2-Rubén] 1.2 mg SQ DAILY 07/29/16 [History] amLODIPine [Norvasc] 10 mg PO DAILY 07/29/16 [History] glipiZIDE [Glucotrol] 2.5 mg PO TID 07/29/16 [History] Aspirin 325 mg PO DAILY tab 08/01/16 [Rx] predniSONE 0 mg PO DIRECTED #50 tab 08/01/16 [Rx] Follow up Appointment(s)/Referral(s): Gertrudis Fletcher MD [Primary Care Provider] - 1-2 days
== END 2016-08-01 14:02 | disposition home or self-care (01) ==
LOC: EC 11:58 → 3SUR 15:42 → 3OBS 18:48
PROVIDERS: ADMIT Internal Medicine; ATTEND Internal Medicine
DX: R07.89 Other chest pain (principal); R09.1 Pleurisy; E11.9 Type 2 diabetes mellitus without complications; I10 Essential (primary) hypertension; E78.5 Hyperlipidemia, unspecified; E03.9 Hypothyroidism, unspecified; I31.3 Pericardial effusion (noninflammatory); K21.9 Gastro-esophageal reflux disease without esophagitis; Z68.41 Body mass index [BMI] 40.0-44.9, adult; E66.9 Obesity, unspecified; G47.33 Obstructive sleep apnea (adult) (pediatric); R51 Headache; R11.0 Nausea; R61 Generalized hyperhidrosis; R20.2 Paresthesia of skin; Z79.899 Other long term (current) drug therapy; Z79.84 Long term (current) use of oral hypoglycemic drugs; Z88.0 Allergy status to penicillin; Z99.89 Dependence on other enabling machines and devices; Z87.891 Personal history of nicotine dependence; Z82.49 Family history of ischemic heart disease and other diseases of the circulatory system
CPT/HCPCS: 36415; 93005; 93350; 93017; 93306; 85379; 80061; 80053 ×3; 83036 ×2; 82550 ×2; 82553 ×2; 83735; 84484 ×2; 85025 ×3; 85610; 85730; 71020; 96374; 99285; G0378 ×4; J1250; J1644 ×2; J2930 ×2; J2405 ×4; J0461; Q9957; 96372; 96375; 96376

== ENCOUNTER 2016-10-22 10:22 | Emergency (ER) | payer OTHER ==
--- NOTE | 2016-10-22 10:42 | ED ---
General Adult HPI - General Chief complaint: Extremity Injury, Lower Stated complaint: left leg injury Time Seen by Provider: 10/22/16 10:34 Source: patient, RN notes reviewed Mode of arrival: ambulatory Limitations: no limitations - History of Present Illness Initial comments: Patient 51-year-old female who presents emergency room today with a chief complaint of injury to the left lower leg times one week. She does admit that a week ago she was trying to help her nephew was having seizures tripped by a dog went down to the left knee. She does admit to increased swelling pain locally to the left knee and left ankle and foot. She admits that there has been bruising and swelling. She states does not seem to be getting better. Patient states she did have x-rays obtained which were negative. States this was 7 days ago. Patient states still having pain and swelling to the area. Worse with ambulation. Denies any other complaints or symptoms at this time. Patient denies any recent fever, chills, shortness of breath, chest pain, back pain, abdominal pain, nausea or vomiting, numbness or tingling, dysuria or hematuria, constipation or diarrhea, headaches or visual changes, or any other complaints. - Related Data Home Medications Medication Instructions Recorded Confirmed Lisinopril [Prinivil] 20 mg PO BID 10/21/13 10/22/16 Carvedilol [Coreg] 12.5 mg PO BID 07/29/16 10/22/16 Famotidine 20 mg PO HS 07/29/16 10/22/16 Hydrocodone/Acetaminophen [[place] 1 tab PO Q4H PRN 07/29/16 10/22/16 10-325] Levothyroxine Sodium [Synthroid] 50 mcg PO DAILY 07/29/16 10/22/16 Liraglutide [Victoza 2-Rubén] 1.2 mg SQ DAILY 07/29/16 10/22/16 amLODIPine [Norvasc] 10 mg PO DAILY 07/29/16 10/22/16 glipiZIDE [Glucotrol] 2.5 mg PO TID 07/29/16 10/22/16 Previous Rx's Medication Instructions Recorded Aspirin 325 mg PO DAILY tab 08/01/16 Allergies Allergy/AdvReac Type Severity Reaction Status Date / Time Penicillins Allergy Unknown Verified 10/22/16 10:26 Childhood Review of Systems ROS Statement: Those systems with pertinent positive or pertinent negative responses have been documented in the HPI. ROS Other: All systems not noted in ROS Statement are negative. Past Medical History Past Medical History: Diabetes Mellitus, GERD/Reflux, Hypertension, Sleep Apnea/ CPAP/BIPAP Additional Past Medical History / Comment(s): hx migraines, hx heart murmer, chronic diarrhea. diagnosed 7 months ago with Diabetes Mellitis History of Any Multi-Drug Resistant Organisms: None Reported Past Surgical History: Appendectomy, Cholecystectomy, Hysterectomy, Tonsillectomy Additional Past Surgical History / Comment(s): NECK FUSION, lasik eye Past Anesthesia/Blood Transfusion Reactions: No Reported Reaction Past Psychological History: No Psychological Hx Reported Smoking Status: Former smoker Past Alcohol Use History: None Reported Past Drug Use History: None Reported - Past Family History Father Family Medical History: Cancer General Exam - General Exam Comments Initial Comments: General: The patient is awake and alert, in no distress, and does not appear acutely ill. Neck: The neck is supple, there is no tenderness or JVD. Cardiovascular: There is a regular rate and rhythm. No murmur, rub or gallop is appreciated. Respiratory: Lungs are clear to auscultation, respirations are non-labored, breath sounds are equal. No wheezes, stridor, rales, or rhonchi. Musculoskeletal: Patient does have moderate bruising and swelling to the left lower extremity down to the foot. Patient locally tender over the anterior and lateral aspects of the left knee. Mild tenderness over the lateral malleolus. Mild tenderness over the fourth and fifth metatarsals proximally. Remaining bones are nontender. Sensations intact with pulses equal bilaterally 2+. Strength 5/5 in all areas. Neurological: A&O x 3. CN II-XII intact, There are no obvious motor or sensory deficits. Coordination appears grossly intact. Speech is normal. Skin: Skin is warm and dry and no rashes or lesions are noted. Psychiatric: Normal mood and affect. Limitations: no limitations Course Vital Signs 10/22/16 10:23 Temperature 98.6 F Pulse Rate 83 Respiratory 18 Rate Blood Pressure 135/58 O2 Sat by Pulse 100 Oximetry Medical Decision Making - Medical Decision Making X-rays reviewed and are negative for any acute fracture dislocation. Ultrasound negative for any evidence of DVT. Results were discussed with the patient. Patient will be discharged home and advised follow-up orthopedics for further evaluation. Advised ice and elevate the affected areas. Disposition Clinical Impression: Knee injury Disposition: HOME SELF-CARE Condition: Good Instructions: Knee Pain (ED) Additional Instructions: Please follow-up with the orthopedic doctor over the next 2 days. Please continue ice elevate the affected area as discussed. Please return to emergency room for any other concerns. Referrals: Gertrudis Fletcher MD [Primary Care Provider] - 1-2 days Jayy Coley MD [STAFF PHYSICIAN] - 1-2 days Time of Disposition: 12:33
--- NOTE | 2016-10-22 11:04 | XR ---
EXAMINATION TYPE: XR ankle limited LT DATE OF EXAM: 10/22/2016 11:00 AM COMPARISON: NONE HISTORY: Pain FINDINGS: Two views of the ankle demonstrate the ankle mortise to be intact and symmetric. The joint spaces ar e preserved. The osseous structures are intact. Small plantar calcaneal spur noted. IMPRESSION: 1. No definite acute fracture or dislocation, if symptoms persist follow-up study in 7 to 10 days wou ld be suggested.
--- NOTE | 2016-10-22 11:05 | XR ---
EXAMINATION TYPE: XR tibia fibula LT DATE OF EXAM: 10/22/2016 11:00 AM COMPARISON: NONE HISTORY: Pain TECHNIQUE: Two views are submitted. FINDINGS: The osseous structures are intact. The joint spaces are preserved. Mild diffuse osteopenia. IMPRESSION: 1. No acute osseous abnormality.
--- NOTE | 2016-10-22 11:05 | XR ---
EXAMINATION TYPE: XR knee complete LT DATE OF EXAM ORDERED: 10/22/2016 11:00 AM HISTORY: Pain. COMPARISON: None. FINDINGS: No fracture, dislocation or joint effusion is seen. There is minimal hypertrophic spurring in the patellofemoral joint. IMPRESSION: NO ACUTE OSSEOUS LESION.
--- NOTE | 2016-10-22 11:06 | XR ---
EXAMINATION TYPE: XR foot complete LT DATE OF EXAM: 10/22/2016 11:00 AM COMPARISON: NONE HISTORY: Pain TECHNIQUE: Three views are submitted. FINDINGS: The osseous structures are intact and hypertrophic change and significant narrowing first MTP joint. No erosive change. There is no acute fracture or dislocation. Small plantar calcaneal spur. IMPRESSION: 1. No acute fracture or dislocation. If symptoms persist, follow-up exam in 7 to 10 days could be ob tained.
--- NOTE | 2016-10-22 12:04 | US ---
EXAMINATION TYPE: US venous doppler duplex LE LT DATE OF EXAM: 10/22/2016 11:55 AM COMPARISON: NONE CLINICAL HISTORY: Pain. Left leg pain following fall SIDE PERFORMED: Left TECHNIQUE: The lower extremity deep venous system is examined utilizing real time linear array sonog purnima with graded compression, doppler sonography and color-flow sonography. VESSELS IMAGED: External Iliac Vein (EIV) Common Femoral Vein Deep Femoral Vein Greater Saphenous Vein * Femoral Vein Popliteal Vein Small Saphenous Vein * Proximal Calf Veins (* superficial vessels) Left Leg: Appears negative for DVT IMPRESSION: 1. No diagnostic evidence of DVT as visualized.
[2016-10-22 12:51] VITALS: BP 106/62; PULSE 81; RESP 16; TEMP 98.7
== END 2016-10-22 13:00 | disposition home or self-care (01) ==
LOC: EC 10:22
DX: S89.92XA Unspecified injury of left lower leg, initial encounter (principal); I10 Essential (primary) hypertension; E11.9 Type 2 diabetes mellitus without complications; K21.9 Gastro-esophageal reflux disease without esophagitis; Z87.891 Personal history of nicotine dependence; Z79.84 Long term (current) use of oral hypoglycemic drugs; Z79.899 Other long term (current) drug therapy; Z88.0 Allergy status to penicillin; W01.0XXA Fall on same level from slipping, tripping and stumbling without subsequent striking against object, initial encounter; Y93.89 Activity, other specified
CPT/HCPCS: 99284